=== PATIENT | female | born 1985 | race Caucasian/White ===

== ENCOUNTER 2017-08-20 11:58 | Inpatient (IN) ==
[2017-08-20 12:51] LABS: URINE SOURCE VOIDED
[2017-08-20 12:58] LABS: BILIRUBIN URINE NEGATIVE (NEGATIVE); BLOOD URINE 1+ (NEGATIVE); CLARITY CLEAR (CLEAR); COLOR YELLOW; LEUKOCYTES URINE TRACE (NEGATIVE); NITRITE URINE NEGATIVE (NEGATIVE); PH URINE 6.5; PROTEIN URINE 1+(30 mg/dL) mg/dL (NEGATIVE); UROBILINOGEN URINE NORMAL
[2017-08-20] MEDS ORDERED: TYLENOL PO PRN (13:29)
[2017-08-20] MEDS ORDERED: LR 500 ML IV ONE (13:29)
[2017-08-20] MEDS ORDERED: KEFZOL 1 GM/D5W 1 GM/50 ML IVPB IV PRN (13:29)
[2017-08-20] MEDS ORDERED: REGLAN PO ONE (13:29)
[2017-08-20] MEDS ORDERED: PEPCID PO ONE (13:29)
[2017-08-20] MEDS ORDERED: STADOL IV PRN (13:29)
[2017-08-20] MEDS ORDERED: PEPCID IV PRN (13:29)
[2017-08-20] MEDS ORDERED: PEPCID PO PRN (13:29)
[2017-08-20] MEDS ORDERED: SODIUM CHLORIDE 0.9% INJ SCH (13:30)
[2017-08-20] MEDS: PITOCIN 30 UNITS/LR 30 UNITS/500 ML IV.SOLN IV SCH (14:30)
[2017-08-20] MEDS: LR 1,000 ML IV SCH ×3 (14:30→21:30)
[2017-08-20 14:51] LABS: MANUAL DIFF NEEDED? NO
[2017-08-20 14:59] LABS: BASO% 0.2 % (0.0-0.8); EOS# 0.05 X1000 (0.0-0.7); EOS% 0.4 % (0.0-10.0); HEMATOCRIT 36.4 % (37.0-47.0); HEMOGLOBIN 12.6 g/dL (12.0-16.0); IMM GRAN# 0.05 X1000 (0.0-0.04); IMM GRAN% 0.4 % (0.0-0.5); LYMPH# 1.96 X1000 (1.2-3.4); LYMPH% 17.4 % (20.5-51.1); MCH 31.3 PG (27-31); MCHC 34.6 g/dL (33-37); MCV 90.5 FL (81-99); MONO% 9.8 % (1.7-9.3); NEUT% 71.8 % (42.2-75.2); PLT 317 X1000 (130-400); RBC 4.02 XMIL (4.2-5.4)
[2017-08-20] MEDS ORDERED: FENTANYL-BUPIV-NS 2 MCG-0.1% 200 ML EPIDURAL PRN (15:24)
[2017-08-20] MEDS ORDERED: XYLOCAINE-MPF 1% INJ ONE ×2 (15:30→18:00)
[2017-08-20] MEDS: ZOFRAN IV PRN (16:41)
[2017-08-20] MEDS ORDERED: EPHEDRINE ONE (20:51)
[2017-08-21] MEDS: ZOFRAN IV PRN ×2 (00:23→21:36)
[2017-08-21] MEDS ORDERED: NEO-SYNEPHRINE ONE (00:26)
[2017-08-21] MEDS ORDERED: BENADRYL ONE (02:08)
[2017-08-21] MEDS ORDERED: NAROPIN 0.2% ONE (02:09)
[2017-08-21] MEDS ORDERED: BENADRYL IV PRN ×2 (02:14→12:33)
[2017-08-21] MEDS: PITOCIN 30 UNITS/LR 30 UNITS/500 ML IV.SOLN IV SCH (07:35)
[2017-08-21] MEDS ORDERED: BICITRA ONE (08:30)
[2017-08-21] MEDS ORDERED: BICITRA PO ONE (08:35)
[2017-08-21] MEDS ORDERED: XYLOCAINE-MPF 2% ONE (08:58)
[2017-08-21 09:44] LABS: HEMATOCRIT 35.6 % (37.0-47.0); HEMOGLOBIN 11.8 g/dL (12.0-16.0); MCH 30.8 PG (27-31); MCHC 33.1 g/dL (33-37); MPV 10.7 FL (7.4-10.4); RBC 3.83 XMIL (4.2-5.4)
[2017-08-21] MEDS: TORADOL IV SCH ×4 (10:30→21:36)
[2017-08-21] MEDS ORDERED: TORADOL ONE (10:33)
[2017-08-21] MEDS ORDERED: ZOFRAN ONE (10:33)
[2017-08-21] MEDS ORDERED: PITOCIN ONE (10:33)
[2017-08-21] MEDS ORDERED: DURAMORPH ONE (10:37)
[2017-08-21] MEDS ORDERED: FENTANYL ONE (10:47)
[2017-08-21] MEDS ORDERED: PITOCIN 20 UNITS/LR 20 UNITS/1,000 ML IV.SOLN IV ONE (11:11)
[2017-08-21] MEDS ORDERED: DULCOLAX PR PRN (11:11)
[2017-08-21] MEDS ORDERED: AMBIEN PO PRN (11:11)
[2017-08-21] MEDS ORDERED: PITOCIN IM PRN (11:11)
[2017-08-21] MEDS ORDERED: PHENERGAN IM PRN (11:11)
[2017-08-21] MEDS ORDERED: HYDROXYZINE PO PRN (11:11)
[2017-08-21] MEDS ORDERED: BOOSTRIX VACCINE IM ONE (11:11)
[2017-08-21] MEDS ORDERED: PERCOCET-5 PO PRN (11:11)
[2017-08-21] MEDS ORDERED: M-M-R II VACCINE SUBQ ONE (11:11)
[2017-08-21] MEDS ORDERED: HYDROXYZINE IM PRN (11:11)
[2017-08-21] MEDS ORDERED: PITOCIN 10 UNITS/LR 10 UNIT/1,000 ML IV.SOLN IV SCH (11:15)
[2017-08-21] MEDS ORDERED: ZOFRAN ODT PO PRN (12:33)
[2017-08-21] MEDS ORDERED: NARCAN INJ PRN (12:33)
[2017-08-21] MEDS ORDERED: ZOFRAN IV PRN ×2 (12:33)
[2017-08-21] MEDS ORDERED: MORPHINE IV PRN (12:34)
[2017-08-21] MEDS ORDERED: HUMULIN R (PARKWAY) IV ONE (13:48)
[2017-08-21] MEDS: PERCOCET-10 PO PRN ×2 (14:49→21:36)
[2017-08-21] MEDS: LR 1,000 ML IV SCH ×2 (15:37→21:20)
[2017-08-21] MEDS: MYLICON PO SCH ×2 (18:19→21:36)
[2017-08-21] MEDS: PERICOLACE PO SCH (21:36)
[2017-08-22] MEDS: PERCOCET-10 PO PRN ×6 (00:28→23:50)
[2017-08-22] MEDS: TORADOL IV SCH ×2 (03:07→06:24)
[2017-08-22] MEDS: MYLICON PO PRN ×2 (04:28→18:39)
[2017-08-22 06:09] LABS: HEMATOCRIT 31.9 % (37.0-47.0); HEMOGLOBIN 10.7 g/dL (12.0-16.0); MCHC 33.5 g/dL (33-37); MCV 92.5 FL (81-99); MPV 10.9 FL (7.4-10.4); RBC 3.45 XMIL (4.2-5.4)
[2017-08-22] MEDS: LR 1,000 ML IV SCH (06:24)
[2017-08-22] MEDS: MYLICON PO SCH ×4 (09:24→20:47)
[2017-08-22] MEDS ORDERED: LR 1,000 ML IV SCH (11:11)
[2017-08-22] MEDS: MOTRIN PO PRN ×2 (12:57→23:50)
[2017-08-22] MEDS: HUMULIN R (PARKWAY) SUBQ SCH ×2 (18:40→20:51)
[2017-08-22] MEDS: PERICOLACE PO SCH (20:47)
[2017-08-23] MEDS: PERCOCET-10 PO PRN ×6 (03:39→21:49)
[2017-08-23] MEDS: HUMULIN R (PARKWAY) SUBQ SCH ×3 (06:49→21:47)
[2017-08-23] MEDS: MOTRIN PO PRN ×2 (07:46→15:19)
[2017-08-23] MEDS: MYLICON PO SCH ×5 (11:53→21:47)
[2017-08-23] MEDS: MYLICON PO PRN (11:53)
[2017-08-23] MEDS: PERICOLACE PO SCH (21:47)
[2017-08-24] MEDS: PERCOCET-10 PO PRN ×3 (00:47→08:41)
[2017-08-24] MEDS: MOTRIN PO PRN ×2 (00:47→08:41)
[2017-08-24] MEDS: HUMULIN R (PARKWAY) SUBQ SCH (06:02)
[2017-08-24] MEDS ORDERED: FLUZONE QUAD 2017-2018 SYRINGE IM ONE (07:20)
[2017-08-24] MEDS: MYLICON PO SCH (08:41)
== END 2017-08-24 10:45 | disposition home or self-care (01) ==
LOC: P.OPLD 11:58 → P.LD 11:59 → P.WC 08-21 15:17
PROVIDERS: ADMIT Obstetrics & Gynecology; ATTEND Obstetrics & Gynecology